=== PATIENT | female | born 1935 | race Caucasian/White ===

== ENCOUNTER 2020-11-20 12:03 | Inpatient (IN) | payer MEDICARE, OTHER, SELFPAY ==
[2020-11-20 12:05] VITALS: BP 153/76; PULSE 87; RESP 18; TEMP 36.7; O2SAT 96; BMI 25.8
--- NOTE | 2020-11-20 12:22 | EKG12_ITS ---
Test Reason : FALL Blood Pressure : / mmHG Vent. Rate : 084 BPM Atrial Rate : 084 BPM P-R Int : 204 ms QRS Dur : 082 ms QT Int : 370 ms P-R-T Axes : 075 069 076 degrees QTc Int : 437 ms Normal sinus rhythm Septal infarct , age undetermined Abnormal ECG Confirmed by DISHA HARDIN, ALBINO ([id number]), purchase request editor LY AGUAYO ([id number]) on 11/23/2020 11:27:45 A M Referred By: AMIRA Confirmed By:DONALD GAUTHIER MD
--- NOTE | 2020-11-20 12:22 | CT_ITS ---
STUDY: CT BRAIN WITHOUT CONTRAST REASON FOR EXAM: Female, 85 years old. Headache after trauma RADIATION DOSAGE (If Supplied By Facility): CTDIvol = ( 44.99 ) mGy, DLP = ( 796.11 ) mGycm TECHNIQUE: Transaxial CT imaging of the brain was performed without administration of intravenous contrast material. Individualized dose optimization techniques were used for this CT. COMPARISON: No relevant priors. FINDINGS: Normal soft tissue structures. Normal calvarium. Normal size ventricles and extra-axial spaces for the patient''s age. Normal white matter tracts of the cerebral hemispheres. Normal basal ganglia and thalami. Normal brainstem. Normal cerebellum. There is no intracranial hemorrhage. There are no findings of an acute ischemic infarction. Normal visualized paranasal sinuses. CT/Brain/Head without Contrast IMPRESSION: Chronic involutional changes of the brain, no acute hemorrhage. Electronically Signed: Wale Boss MD at 13:15 EDT , Service support ,
--- NOTE | 2020-11-20 12:25 | EDS_ITS ---
HPI History of Present Illness Chief Complaint: Fall Narrative Narrative: Patient presents after falling she indicates she was visiting a local establishment she indicated that her foot got caught on something and she fell injuring her left hip she hit her right face no LOC no neck pain chest pain abdominal pain she was not ill in any way, she indicates she has seen a certified hand therapist she has no known history of heart disease no history of NE, she has prior right knee replacement surgery she lives out of town she has no back pain PFSH PFSH Medical History (Updated 11/20/20 @ 14:[address] Roland Moss MD) Coronary artery disease Depression Fracture of pubic ramus GERD (gastroesophageal reflux disease) Hernia Hypertension Home Medications bimatoprost 1 drp EACH EYE DAILY@1800 11/20/20 [History Last Taken 11/19/20] calcium carbonate-vitamin D3 [Calcium + D] 1 tab PO DAILY 11/20/20 [History Last Taken 11/20/20] dorzolamide-timolol [Cosopt] 1 drp EACH EYE BID 11/20/20 [History Last Taken 11/20/20] ferrous sulfate 325 mg PO DAILY 11/20/20 [History Last Taken 11/20/20] hydrochlorothiazide 12.5 mg PO DAILY 11/20/20 [History Last Taken 11/20/20] hydroxychloroquine [Plaquenil] 200 mg PO DAILY 11/20/20 [History Last Taken 11/19/20] losartan 100 mg PO DAILY 11/20/20 [History Last Taken 11/20/20] meloxicam 7.5 mg PO BID 11/20/20 [History Last Taken 11/20/20] metoprolol succinate 75 mg PO DAILY 11/20/20 [History Last Taken 11/20/20] multivitamin 1 tab PO DAILY 11/20/20 [History Last Taken 11/20/20] oxycodone-acetaminophen 1 tab PO Q6H PRN PRN 3 Days #12 tablet 11/20/20 [Rx Last Taken Unknown] vitamin E 400 unit PO DAILY 11/20/20 [History Last Taken 11/20/20] Allergy/AdvReac Type Severity Reaction Status Date / Time No Known Allergies Allergy Verified 11/20/20 12:07 Family History (Updated 11/20/20 @ 12:51 by Eloisa Castillo) Other H/O: hysterectomy Social History Smoking Status: Never smoker ROS ROS ED ROS Narrative Right facial abrasion left hip pain Constitutional Constitutional ED: Reports subjective, sweats and other; Denies chills, fever(s) or weight loss Eyes Eyes: Denies blurry vision or change in vision ENT ENT ED: Denies ear pain Cardiovascular Cardiovascular: Denies chest pain or palpitations Respiratory/Chest Respiratory/Chest: Denies dyspnea Gastrointestinal Gastrointestinal: Denies abdominal pain, nausea or vomiting Genitourinary Genitourinary ED: Denies dysuria or hematuria Musculoskeletal Musculoskeletal: Reports arthralgias and myalgias Integumentary Reports rash; Denies abscess Neurologic Neurologic: Denies weakness Psychiatric Psychiatric: Denies anxiety or depression Endocrine Endocrinology: Denies polydipsia or polyuria Allergic/Immunologic Allergic/Immunologic ED: Denies urticaria EXAM Physical Exam Narrative Exam Narrative: She is awake and alert abrasion contusion to the right face and eye the eyes unremarkable HEENT is unremarkable neck is unremarkable nontender head neck chest abdomen unremarkable except for the left hip she has decreased range of motion and pain minimal shortening no obvious back pain NIH 0 she assures me she simply tripped and fell Const Vital Signs: 11/20/20 12:05 11/20/20 12:47 11/20/20 14:26 Temperature 98.0 F Temperature Source Temporal Pulse Rate 87 86 Respiratory Rate 18 Respiratory Effort Normal Blood Pressure 153/76 H 157/83 H Blood Pressure Mean 101 107 Pulse Ox 96 95 Oxygen Delivery Method Room Air Room Air Positive well developed General Appearance ED: well developed HEENT Reports normocephalic trauma Eyes EOMs intact bilaterally Neck supple Chest Wall inspection of chest normal Resp normal respiratory effort Cardio regular rate GI non-tender and non-distended Back/Spine Back/Spine Narrative: unremarkable Extremity Negative for normal to inspection General Extremety ED: Yes tenderness Neuro oriented x3 and CN's II-XII intact bilaterally Sensorium / Orientation: alert Psych mental status grossly normal Skin no rashes or lesions noted MDM MDM MDM Narrative Medical decision making narrative: Given her complaints ED evaluation with labs x-rays CT EKG shows sinus rhythm rate of 84 no acute injury nonspecific pattern Multiview left hip x-ray shows no hip fracture there appears to be a superior pubic ramus fracture radiology generally concur see those reports all the other screening labs are unremarkable including the head CT Discussed all this with patient her daughter discussed inpatient versus outpatient management the patient is not from this area she prefers outpatient management she has a walker at home she will be able to follow-up with her outpatient providers for all of her ongoing care needs and return for change in symptoms Home stable did not wish to be admitted Final impression fall left pubic ramus fracture, head injury Please note we tried to ambulate the patient and get her mobile to help move her to her family's car she could not tolerate the pain she could not ambulate she was placed back in bed given a fluid bolus given the above failure to be able to minimally move I explained to her she has failed the discharge plan and she now does agree to would be admitted, spoke with the hospitalist and they agree Disposition now is admit Lab Data Labs: Laboratory Results - last 24 hr 11/20/20 11/20/20 11/20/20 11:45 11:45 11:45 WBC 5.4 RBC 3.38 L Hgb 11.8 L Hct 34.3 L MCV 101.5 H MCH 34.9 H MCHC 34.4 RDW Std Deviation 45.9 H RDW Coeff of Lashawn 12.3 Plt Count 217 MPV 10.5 Immature Gran % (Auto) 0.600 Neut % (Auto) 73.7 H Lymph % (Auto) 15.7 L [place] % (Auto) 8.1 Eos % (Auto) 1.3 Baso % (Auto) 0.6 Absolute Neuts (auto) 4.0 Absolute Lymphs (auto) 0.85 Nucleated RBC % 0 PT Cancelled INR Cancelled Sodium 136 Potassium 3.9 Chloride 101 Carbon Dioxide 31.0 Anion Gap 4 L BUN 30 H Creatinine 0.94 Estim Creat Clear Calc 41.71 Est GFR (MDRD) Af Amer 73 Est GFR (MDRD) Non-Af 60 BUN/Creatinine Ratio 31.8 H Glucose 108 H Calcium 9.5 11/20/20 11/20/20 13:35 13:55 WBC RBC Hgb Hct MCV MCH MCHC RDW Std Deviation RDW Coeff of Lashawn Plt Count MPV Immature Gran % (Auto) Neut % (Auto) Lymph % (Auto) [place]ock[place] % (Auto) Eos % (Auto) Baso % (Auto) Absolute Neuts (auto) Absolute Lymphs (auto) Nucleated RBC % PT Cancelled 13.4 INR Cancelled 1.1 Sodium Potassium Chloride Carbon Dioxide Anion Gap BUN Creatinine Estim Creat Clear Calc Est GFR (MDRD) Af Amer Est GFR (MDRD) Non-Af BUN/Creatinine Ratio Glucose Calcium Radiography Diagnostic Testing: Radiology Impression Brain CT 11/20/20 12:22 IMPRESSION: Chronic involutional changes of the brain, no acute hemorrhage. Electronically Signed: Wale Boss MD at 13:15 EDT , Service support , Hip/Pelvis X-Ray 11/20/20 12:25 IMPRESSION: Acute minimally displaced left superior and inferior pubic rami fractures Age consistent hip and SI joint arthrosis. No other demonstrated fracture, please see discussion above Electronically Signed: Wale Boss MD at 13:24 EDT , Service support , Chest X-Ray 11/20/20 13:05 IMPRESSION: No acute pulmonary process Electronically Signed: Wale Boss MD at 13:24 EDT , Service support , Discharge Plan Triage Chief Complaint: Fall ED Provider: Roland Moss Dx/Rx/DC Orders Clinical Impression: Fracture of pubic ramus, Head injury Prescriptions: New oxycodone-acetaminophen [oxycodone-acetaminophen] 1 TABLET tablet 1 tab PO Q6H PRN PRN (Reason: Pain) 3 Days Qty: 12 RF: 0 No Action multivitamin Tablet 1 tab PO DAILY RF: 0 metoprolol succinate 50 mg Tablet Extended Release 24 Hr 75 mg PO DAILY RF: 0 bimatoprost 0.03 % Drops 1 drp EACH EYE DAILY@1800 RF: 0 calcium carbonate-vitamin D3 [Calcium + D] 600 mg(1,500mg) -200 unit Tablet 1 tab PO DAILY RF: 0 meloxicam 7.5 mg Tablet 7.5 mg PO BID RF: 0 ferrous sulfate 325 mg (65 mg iron) Tablet 325 mg PO DAILY RF: 0 dorzolamide-timolol [Cosopt] 22.3-6.8 mg/mL Drops 1 drp EACH EYE BID RF: 0 hydroxychloroquine [Plaquenil] 200 mg Tablet 200 mg PO DAILY RF: 0 losartan 100 mg Tablet 100 mg PO DAILY RF: 0 vitamin E 400 unit Capsule 400 unit PO DAILY RF: 0 hydrochlorothiazide 12.5 mg Tablet 12.5 mg PO DAILY RF: 0 Referrals: JONY FORTE [Other] Disposition Disposition: Home, self care
--- NOTE | 2020-11-20 12:25 | RAD_ITS ---
STUDY: X-RAY - PELVIS AND LEFT HIP REASON FOR EXAM: Female, 85 years old. Pain after trauma TECHNIQUE: 4 views of the pelvis and hip. COMPARISON: None. FINDINGS: There is a non-specific bowel gas pattern. Normal visualized soft tissue structures. There is diffuse demineralization of the osseous structures. There is narrowing with cortical sclerosis and osteophyte formation of the sacroiliac joint consistent with degenerative osteoarthritic changes. Acute minimally displaced left superior and inferior pubic rami fractures noted. No demonstrated right superior or inferior pubic rami fractures. Age consistent bilateral hip arthrosis without demonstrated femoral or acetabular fracture. However, hip fractures in patients of this age can be subtle, if there is strong clinical suspicion of another fracture, recommend further evaluation with cross-sectional imaging. RAD/HIP, UNI W/ Pelvis 2-3 Views IMPRESSION: Acute minimally displaced left superior and inferior pubic rami fractures Age consistent hip and SI joint arthrosis. No other demonstrated fracture, please see discussion above Electronically Signed: Wale Boss MD at 13:24 EDT , Service support ,
[2020-11-20] MEDS: morphine 8 MG/ML Syringe IV (12:41)
[2020-11-20] MEDS: Ondansetron 4 MG/2 ML Vial IV (12:42)
--- NOTE | 2020-11-20 13:05 | RAD_ITS ---
STUDY: X-RAY CHEST REASON FOR EXAM: Female, 85 years old. Chest pain after trauma TECHNIQUE: Single frontal view of the chest. COMPARISON: None. FINDINGS: The lungs are clear and expanded. There is no demonstrated pleural abnormality. Normal size heart. Normal mediastinum and leroy. Normal visualized pulmonary arteries. Normal visualized aortic arch and descending thoracic aorta. Normal visualized thoracic spine. Normal visualized ribs, clavicles, and shoulders. There is no demonstrated abnormality of the visualized soft tissue structures of the upper abdomen. RAD/Chest 1 View (Portable) IMPRESSION: No acute pulmonary process Electronically Signed: Wale Boss MD at 13:24 EDT , Service support ,
[2020-11-20 13:06] LABS: Absolute Lymphocyte Count 0.85 X10^3/uL (0.83-4.51); Basophil# 0.03 X10^3/uL; Basophil% 0.6 % (0-1); Eosinophil# 0.07 X10^3/uL; Eosinophils% 1.3 % (0-5); Hematocrit 34.3 % (37-47); Hemoglobin 11.8 g/dL (12.0-15.0); Lymphocyte # 0.85 X10^3/ul (0.83-4.51); Lymphocyte % 15.7 % (19-41); Mean Corp Hgb Conc 34.4 g/dL (32-36); Mean Corpuscular Hgb 34.9 pg (27.0-32.0); Mean Corpuscular Volume 101.5 fL (81-99); Mean Platelet Vol. 10.5 fl (6.2-12.0); Monocyte# 0.44 X10^3/uL; Monocyte% 8.1 % (0-10); NRBC Flagged by Analyzer 0 % (0-5); Neutrophil # 3.99 X10^3/uL (2.7-7.7); Neutrophil % 73.7 % (47-70); Platelet Count 217 K/mm3 (150-450); RBC Distribution Width CV 12.3 % (11.6-14.6); RBC Distribution Width SD 45.9 fl (35.1-43.9); Red Blood Count 3.38 M/mm3 (4.2-5.4); White Blood Count 5.4 K/mm3 (4.4-11.0)
[2020-11-20 13:16] LABS: Anion Gap 4 (5-15); BUN 30 mg/dL (7-18); BUN/Creat Ratio 31.8 RATIO (10-20); Calcium,Total 9.5 mg/dL (8.5-10.1); Chloride 101 mmol/L (98-107); Creatinine, Serum 0.94 mg/dL (0.55-1.02); EST Glomerular Filtration Rate 60 mL/min (>60); Est Glom Filt Rate - Afr Amer 73 mL/min (>60); Estimated Creatinine Clearance 41.71 ml/min; Glucose 108 mg/dL (74-106); Potassium 3.9 mmol/L (3.5-5.1); Sodium Level 136 mmol/L (136-145)
[2020-11-20 14:11] LABS: International Normalized Ratio 1.1; Prothrombin Time (Protime)PT. 13.4 SECONDS (11.7-14.9)
[2020-11-20 14:26] VITALS: BP 157/83; PULSE 86; O2SAT 95
--- NOTE | 2020-11-20 15:10 | ED.RN ---
PT UNABLE TO STAND . PT HAD A SYNCOPAL EPISODE WHILE TRYING TO STAND. PT ASSISTED BACK TO BED. PT HOOKED UP TO THE MONITOR AND DR KAUR INFORMED. HOSPITALIST PAGED
--- NOTE | 2020-11-20 15:20 | HP.PCM.HOS_ITS ---
HPI - General HPI Narrative HUSSAIN PADILLA, is a 85 F with a PMH as outlined who presents with a complaint of mechanical fall. She thinks her foot must have got caught on something, and she tripped and landed on her right side. SHe sustained a contusion to the right side of her face, and imaging done showed acute, minimally displaced left superior and inferior pubic rami fractures. Plan was for her to go home from ED, but she was unable to ambulate. Vitals showed blood pressure of 157/83 with pulse of 86. She was saturating 95% on room air. CBC showed hemoglobin of 11.8 with WBC of 5.5 platelets of 217, and chemistry showed sodium of 136 with potassium of 3.9 and creatinine of 0.94. She has been admitted to be managed for debility due to pubic rami fracture FOR[facility], [facility] Medical History (Updated 11/20/20 @ 14:[address] Roland Moss MD) Coronary artery disease Depression Fracture of pubic ramus GERD (gastroesophageal reflux disease) Hernia Hypertension Home Medications bimatoprost 1 drp EACH EYE DAILY@1800 11/20/20 [History Last Taken 11/19/20] calcium carbonate-vitamin D3 [Calcium + D] 1 tab PO DAILY 11/20/20 [History Last Taken 11/20/20] dorzolamide-timolol [Cosopt] 1 drp EACH EYE BID 11/20/20 [History Last Taken 11/20/20] ferrous sulfate 325 mg PO DAILY 11/20/20 [History Last Taken 11/20/20] hydrochlorothiazide 12.5 mg PO DAILY 11/20/20 [History Last Taken 11/20/20] hydroxychloroquine [Plaquenil] 200 mg PO DAILY 11/20/20 [History Last Taken 11/19/20] losartan 100 mg PO DAILY 11/20/20 [History Last Taken 11/20/20] meloxicam 7.5 mg PO BID 11/20/20 [History Last Taken 11/20/20] metoprolol succinate 75 mg PO DAILY 11/20/20 [History Last Taken 11/20/20] multivitamin 1 tab PO DAILY 11/20/20 [History Last Taken 11/20/20] oxycodone-acetaminophen 1 tab PO Q6H PRN PRN 3 Days #12 tablet 11/20/20 [Rx Last Taken Unknown] vitamin E 400 unit PO DAILY 11/20/20 [History Last Taken 11/20/20] Allergy/AdvReac Type Severity Reaction Status Date / Time No Known Allergies Allergy Verified 11/20/20 12:07 Family History (Updated 11/20/20 @ 12:51 by Eloisa Castillo) Other H/O: hysterectomy Social History Smoking Status: Never smoker ROS Constitutional Constitutional: Reports weakness; Denies anorexia, change in weight, chills, fatigue, fever(s) or malaise Eyes Eyes: Denies change in vision ENT HEENT: Denies dysphagia, headache(s) or nasal congestion Cardiovascular Cardiovascular: Denies chest pain, dyspnea on exertion, edema, lightheadedness, orthopnea or palpitations Respiratory/Chest Respiratory/Chest: Denies cough, dyspnea, productive cough, shortness of breath at rest or shortness of breath with exertion Gastrointestinal Gastrointestinal: Denies abdominal pain, coffee ground emesis, constipation, diarrhea or dyspepsia Genitourinary Genitourinary: Denies burning urination or dysuria Musculoskeletal Musculoskeletal: Reports joint pain; Denies arthralgias, joint swelling or neck pain Neurologic Neurologic: Reports abnormal gait; Denies focal weakness, numbness, paresthesias, seizure-like activity or seizures Psychiatric Psychiatric: Denies anxiety or depression Hematologic/Lymphatic Hematologic/Lymphatic: Denies anemia Vital Signs Vital Signs Vital Signs: 11/20/20 12:05 11/20/20 12:47 11/20/20 14:26 Temperature 98.0 F Temperature Source Temporal Pulse Rate 87 86 Respiratory Rate 18 Respiratory Effort Normal Blood Pressure 153/76 H 157/83 H Blood Pressure Mean 101 107 Pulse Ox 96 95 Oxygen Delivery Method Room Air Room Air Physical Exam Const alert, oriented x3 and no apparent distress General Appearance: cooperative HEENT normocephalic, head/scalp atraumatic and hearing grossly normal bilaterally Eyes PERRL Neck no lymphadenopathy, supple and no JVD Resp normal respiratory effort, no retractions, no use of accessory muscles and clear to auscultation bilaterally Cardio regular rate, regular rhythm, S1 normal heart sound, S2 normal heart sound and no murmurs GI normal to inspection, nondistended, normoactive bowel sounds, soft to palpation, non-tender and non-distended Extremity normal to inspection, full ROM and no clubbing, cyanosis or edema Peripheral Pulses: Yes pulses 2+ throughout Skin no rashes or lesions noted Neuro oriented x3 Sensorium / Orientation: awake and alert Psych affect normal Lab / Micro Data Result Diagrams: 11/20/20 11:45 11/20/20 11:45 Labs: Laboratory Results - last 24 hr 11/20/20 11/20/20 11/20/20 11:45 11:45 11:45 WBC 5.4 RBC 3.38 L Hgb 11.8 L Hct 34.3 L MCV 101.5 H MCH 34.9 H MCHC 34.4 RDW Std Deviation 45.9 H RDW Coeff of Lashawn 12.3 Plt Count 217 MPV 10.5 Immature Gran % (Auto) 0.600 Neut % (Auto) 73.7 H Lymph % (Auto) 15.7 L Wilkinson % (Auto) 8.1 Eos % (Auto) 1.3 Baso % (Auto) 0.6 Absolute Neuts (auto) 4.0 Absolute Lymphs (auto) 0.85 Nucleated RBC % 0 PT Cancelled INR Cancelled Sodium 136 Potassium 3.9 Chloride 101 Carbon Dioxide 31.0 Anion Gap 4 L BUN 30 H Creatinine 0.94 Estim Creat Clear Calc 41.71 Est GFR (MDRD) Af Amer 73 Est GFR (MDRD) Non-Af 60 BUN/Creatinine Ratio 31.8 H Glucose 108 H Calcium 9.5 11/20/20 11/20/20 13:35 13:55 WBC RBC Hgb Hct MCV MCH MCHC RDW Std Deviation RDW Coeff of Lashawn Plt Count MPV Immature Gran % (Auto) Neut % (Auto) Lymph % (Auto) Wilkinson % (Auto) Eos % (Auto) Baso % (Auto) Absolute Neuts (auto) Absolute Lymphs (auto) Nucleated RBC % PT Cancelled 13.4 INR Cancelled 1.1 Sodium Potassium Chloride Carbon Dioxide Anion Gap BUN Creatinine Estim Creat Clear Calc Est GFR (MDRD) Af Amer Est GFR (MDRD) Non-Af BUN/Creatinine Ratio Glucose Calcium Micro: Microbiology 11/20/20 13:27 SARS-CoV-2 Antigen (Rapid) - Final Mucosa - Nasopharyngeal Radiology Impression Brain CT 11/20/20 12:22 IMPRESSION: Chronic involutional changes of the brain, no acute hemorrhage. Electronically Signed: Wale Boss MD at 13:15 EDT , Service support , Hip/Pelvis X-Ray 11/20/20 12:25 IMPRESSION: Acute minimally displaced left superior and inferior pubic rami fractures Age consistent hip and SI joint arthrosis. No other demonstrated fracture, please see discussion above Electronically Signed: Wale Boss MD at 13:24 EDT , Service support , Chest X-Ray 11/20/20 13:05 IMPRESSION: No acute pulmonary process Electronically Signed: Wale Boss MD at 13:24 EDT , Service support , Assessment & Plan Assessment/Plan (1) Fracture of pubic ramus: (2) Head injury: PLAN: #Debility due to pubic rami fracture * admit to med surg * PT/OT consult * fall precautions * hydrate gently with IVF * PO tylenol, PO oxycodone and IV morphine prn for pain * #SUperior and inferior pubic rami fracture * as above. * conservative management * PT/OT consult * #Hypertension: on metoprolol and losartan #History of rheumatoid arthritis: on on hydroxychloroquine. DVT prophylaxis; lovenox Visit Charges OBSV E&M: [id number] Initial observation care L3
[2020-11-20 16:10] VITALS: BP 113/72; PULSE 93; RESP 17; TEMP 36.1
[2020-11-20 17:43] VITALS: BMI 25.0
[2020-11-20 17:47] VITALS: BP 147/75; PULSE 94; RESP 16; TEMP 37; O2SAT 96
[2020-11-20] MEDS: 0.9% Normal Saline 1,000 ML 125 ML IV (18:02)
[2020-11-20] MEDS: Latanoprost 0.005% 1 Bottle 1 DRP EACH EYE (18:21)
[2020-11-20 22:23] VITALS: BP 139/59; PULSE 90; RESP 18; TEMP 37; O2SAT 98
[2020-11-20] MEDS: Dorzolamide HCL/Timolol 10 ml Bottle 1 DRP EACH EYE (22:31)
[2020-11-20] MEDS: Meloxicam 7.5 MG Tablet PO (22:31)
[2020-11-20] MEDS: Acetaminophen 325 MG Tablet 650 MG PO (22:59)
[2020-11-21] VITALS (10 sets, daily range): BP systolic 98–148; BP diastolic 46–63; PULSE 68–98; RESP 18; TEMP 36.6–36.9; O2SAT 95–100
[2020-11-21] MEDS: 0.9% Normal Saline 1,000 ML 125 ML IV (01:44)
[2020-11-21 05:56] LABS: Absolute Lymphocyte Count 0.74 X10^3/uL (0.83-4.51); Absolute Neutrophil Count 4.2 X10^3/uL (2.0-7.7); Basophil# 0.01 X10^3/uL; Basophil% 0.2 % (0-1); Eosinophil# 0.01 X10^3/uL; Eosinophils% 0.2 % (0-5); Hematocrit 28.1 % (37-47); Hemoglobin 9.5 g/dL (12.0-15.0); Lymphocyte # 0.74 X10^3/ul (0.83-4.51); Lymphocyte % 13.7 % (19-41); Mean Corp Hgb Conc 33.8 g/dL (32-36); Mean Corpuscular Hgb 34.2 pg (27.0-32.0); Mean Corpuscular Volume 101.1 fL (81-99); Mean Platelet Vol. 10.2 fl (6.2-12.0); Monocyte# 0.48 X10^3/uL; Monocyte% 8.9 % (0-10); NRBC Flagged by Analyzer 0 % (0-5); Neutrophil # 4.15 X10^3/uL (2.7-7.7); Neutrophil % 76.8 % (47-70); Platelet Count 148 K/mm3 (150-450); RBC Distribution Width CV 12.5 % (11.6-14.6); RBC Distribution Width SD 46.5 fl (35.1-43.9); Red Blood Count 2.78 M/mm3 (4.2-5.4); White Blood Count 5.4 K/mm3 (4.4-11.0)
[2020-11-21 06:35] LABS: Anion Gap 5 (5-15); BUN 30 mg/dL (7-18); BUN/Creat Ratio 36.8 RATIO (10-20); Chloride 107 mmol/L (98-107); Creatinine, Serum 0.82 mg/dL (0.55-1.02); EST Glomerular Filtration Rate 71 mL/min (>60); Est Glom Filt Rate - Afr Amer 86 mL/min (>60); Estimated Creatinine Clearance 45.96 ml/min; Glucose 98 mg/dL (74-106); Potassium 3.4 mmol/L (3.5-5.1); Sodium Level 139 mmol/L (136-145)
--- NOTE | 2020-11-21 07:05 | PCM.PN.HOSP ---
Subjective Subjective Patient was admitted with pubic rami fracture on left side. She was fine in the morning but when physical therapist tried to walk her, she passed out. She remembers only that she walked few steps and then does not remember afterwards. As per nursing staff, she quickly came back few seconds and was normal. Her blood pressure dropped to 98/57 soon after passing out in semi-Martin position and then recovered soon 124/63. Patient asymptomatic with no chest pain or shortness of breath. She further said she felt terrible pain might have passed because of that. Objective Data Objective Data Vital Signs: Vital Signs Temp Pulse Resp BP Pulse Ox 98.4 F 75 18 114/46 L 99 11/21/20 05:43 11/21/20 05:43 11/21/20 05:43 11/21/20 05:43 11/21/20 05:43 Oxygen Delivery Method Room Air Weight: 150 lb Body Mass Index (BMI) 25.0 Intake & Output: Intake and Output for Last 24 Hours 11/19/20 11/20/20 11/21/20 23:59 23:59 23:59 Intake Total 800 / 800 1202.5 / 1202.5 Output Total 0 / 0 200 / 200 Balance 800 / 800 1002.5 / 1002.5 Lab / Micro Data Result Diagrams: 11/21/20 05:32 11/21/20 05:32 Labs: Laboratory Results - last 24 hr 11/20/20 11/20/20 11/20/20 11:45 11:45 11:45 WBC 5.4 RBC 3.38 L Hgb 11.8 L Hct 34.3 L MCV 101.5 H MCH 34.9 H MCHC 34.4 RDW Std Deviation 45.9 H RDW Coeff of Lashawn 12.3 Plt Count 217 MPV 10.5 Immature Gran % (Auto) 0.600 Neut % (Auto) 73.7 H Lymph % (Auto) 15.7 L Smyth % (Auto) 8.1 Eos % (Auto) 1.3 Baso % (Auto) 0.6 Absolute Neuts (auto) 4.0 Absolute Lymphs (auto) 0.85 Nucleated RBC % 0 PT Cancelled INR Cancelled Sodium 136 Potassium 3.9 Chloride 101 Carbon Dioxide 31.0 Anion Gap 4 L BUN 30 H Creatinine 0.94 Estim Creat Clear Calc 41.71 Est GFR (MDRD) Af Amer 73 Est GFR (MDRD) Non-Af 60 BUN/Creatinine Ratio 31.8 H Glucose 108 H Calcium 9.5 11/20/20 11/20/20 11/21/20 13:35 13:55 05:32 WBC 5.4 RBC 2.78 L Hgb 9.5 L Hct 28.1 L MCV 101.1 H MCH 34.2 H MCHC 33.8 RDW Std Deviation 46.5 H RDW Coeff of Lashawn 12.5 Plt Count 148 L MPV 10.2 Immature Gran % (Auto) 0.200 Neut % (Auto) 76.8 H Lymph % (Auto) 13.7 L Smyth % (Auto) 8.9 Eos % (Auto) 0.2 Baso % (Auto) 0.2 Absolute Neuts (auto) 4.2 Absolute Lymphs (auto) 0.74 L Nucleated RBC % 0 PT Cancelled 13.4 INR Cancelled 1.1 Sodium Potassium Chloride Carbon Dioxide Anion Gap BUN Creatinine Estim Creat Clear Calc Est GFR (MDRD) Af Amer Est GFR (MDRD) Non-Af BUN/Creatinine Ratio Glucose Calcium 11/21/20 05:32 WBC RBC Hgb Hct MCV MCH MCHC RDW Std Deviation RDW Coeff of Lashawn Plt Count MPV Immature Gran % (Auto) Neut % (Auto) Lymph % (Auto) Smyth % (Auto) Eos % (Auto) Baso % (Auto) Absolute Neuts (auto) Absolute Lymphs (auto) Nucleated RBC % PT INR Sodium 139 Potassium 3.4 L Chloride 107 Carbon Dioxide 27.0 Anion Gap 5 BUN 30 H Creatinine 0.82 Estim Creat Clear Calc 45.96 Est GFR (MDRD) Af Amer 86 Est GFR (MDRD) Non-Af 71 BUN/Creatinine Ratio 36.8 H Glucose 98 Calcium 8.0 L Micro: Microbiology 11/20/20 13:27 Mucosa - Nasopharyngeal SARS-CoV-2 Antigen (Rapid) - Final Radiography Diagnostic Testing: Radiology Impression Brain CT 11/20/20 12:22 IMPRESSION: Chronic involutional changes of the brain, no acute hemorrhage. Electronically Signed: Wale Boss MD at 13:15 EDT , Service support , Hip/Pelvis X-Ray 11/20/20 12:25 IMPRESSION: Acute minimally displaced left superior and inferior pubic rami fractures Age consistent hip and SI joint arthrosis. No other demonstrated fracture, please see discussion above Electronically Signed: Wale Boss MD at 13:24 EDT , Service support , Chest X-Ray 11/20/20 13:05 IMPRESSION: No acute pulmonary process Electronically Signed: Wale Boss MD at 13:24 EDT , Service support , Physical Exam Narrative Physical exam General: Alert, Oriented x3, Cooperative HEENT: Atraumatic, PERRLA, EOMI, Normocephalic Oral: No Gingival or Mucosal Lesions/ Ulcerations Neck: Supple, No JVD, Negative Carotid Bruits Lungs: Air entry diminished in bilateral lung bases. No crepitation/rhonchi Cardiovascular: Irregular rate and rhythm, normal S1, Normal S2, systolic murmur LLSB and second ICS Abdomen: Bowel Sounds Present, Soft, Non Tender, Non-Distended : No renal angle tenderness. No suprapubic tenderness. Extremities: No edema, Capillary Refill Less than 3 Seconds Skin: No rashes, No breakdown Musculoskeletal: Tenderness over left groin and greater trochanter. ROM restricted of left hip. Neurological: Cranial nerves II-XII grossly intact, Deep Tendon Reflexes 2+/4 and Symmetrical, Neuro grossly intact Psych/Mental Status: Normal Affect, Appropriate. Assessment & Plan Assessment/Plan (1) Fracture of pubic ramus: PLAN: This 85-year-old female was admitted after fall, accidental trip and fall resulting into pubic rami fracture and mild contusion in the head. 1. 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 Pain is controlled. [facility] Patient being evaluated by PT and OT. Patient felt drowsy nauseated with morphine therefore only on oxycodone 5 mg and 10 mg for moderate and severe pain respectively. 2. Syncope most probably vasovagal from pain with quick recovery: Patient recovered soon without any intervention or just laying down. 3. Blood pressure is controlled. Orthostatic blood pressure ordered. On metoprolol and atenolol. 4. Rheumatoid arthritis on hydroxychloroquine: DVT prophylaxis; lovenox Clinical Impression(s) from Imaging Studies Brain CT 11/20/20 12:22 IMPRESSION: Chronic involutional changes of the brain, no acute hemorrhage. Hip/Pelvis X-Ray 11/20/20 12:25 IMPRESSION: Acute minimally displaced left superior and inferior pubic rami fractures Age consistent hip and SI joint arthrosis. No other demonstrated fracture, please see discussion above Chest X-Ray 11/20/20 13:05 IMPRESSION: No acute pulmonary process Visit Charges Inpatient E&M: 29751 Subs Hosp L2
[2020-11-21] MEDS: Multivitamins,Therapeutic Tablet 1 TABLET PO (09:48)
[2020-11-21] MEDS: Metoprolol(XL)Succ 25 MG Tablet 75 MG PO (09:48)
[2020-11-21] MEDS: oxyCODONE 5 MG Tablet PO (09:48)
[2020-11-21] MEDS: Hydroxychloroquine 200 MG Tablet PO (09:49)
[2020-11-21] MEDS: Acetaminophen 325 MG Tablet 650 MG PO (09:49)
[2020-11-21] MEDS: Losartan Potassium 100 MG Tablet PO (09:49)
[2020-11-21] MEDS: Enoxaparin 40 MG/0.4 ML Syringe SC (09:49)
[2020-11-21] MEDS: Calcium Carb/Vitamin D 1 TABLET Tablet PO (09:49)
[2020-11-21] MEDS: hydroCHLOROthiazide 12.5mg 12.5 MG PO (09:49)
[2020-11-21] MEDS: Ferrous Sulfate 325 MG Tablet PO (09:49)
[2020-11-21] MEDS: Dorzolamide HCL/Timolol 10 ml Bottle 1 DRP EACH EYE ×2 (09:50→20:47)
[2020-11-21] MEDS: Vitamin E 400 UNITS Capsule PO (09:50)
[2020-11-21] MEDS: Meloxicam 7.5 MG Tablet PO ×2 (10:51→20:51)
[2020-11-21 11:37] LABS: Bedside Glucose 132 mg/dL (70-110)
--- NOTE | 2020-11-21 12:01 | CASEMGMT ---
Social Work Note SW reviewed PT/OT, pt was max assist of two today. SW in to speak with pt and complete assessment. SW introduced self and role at [facility]. Pt is alert and orientated and answers questions appropriately. Living Arrangements: Pt states she lives alone in a one story home with 2-3 steps enter. Pt states she has railings by the steps. ADLS: PT states she is very independent with ADLs and still drives. PCP: Manuel Colón Pharmacy: Pt states if it is an emergency she will go to [facility] but if not she will order from [facility]. DME: [facility], [employer] Supports: Pt states she has a daughter that lives in [place] which is about 8 miles away from her. HHC: Pt states had HHC in the past after knee surgery 10 years ago, unable to recall the name of agency. SNF: Pt states she has been to [facility] in the past. Pt states she was there after her knee surgery 10 years ago Mental Health Hx: Pt denied Substance Abuse Hx: Pt denied SW asked pt how she ended up in [place] if she is from [place]. Pt states she was coming down to go to [employer] and she went into the first store where she was walking into the store and up the walkway and ended up falling/tripping. SW spoke with pt about discharge plans. Pt states her daughter and her mentioned pt returning to [facility] for short term rehabiliatoin before returning home. SW asked pt if this worker could go ahead and get a referral sent to [facility] and pt states she would like to speak to her daughter again before making a decision. Pt asked if this worker could come back tomorrow. SW explained benefits of beginning the referral process today if SNF is decided on. Pt states she will call her daughter this afternoon then, states this worker can come back later today. SW to follow up with pt later today. Plan: KENNETH Umanzor POLE FRAME CONSTRUCTION WORKER, LIGHT RAIL TRANSIT OPERATOR
--- NOTE | 2020-11-21 12:57 | CHAPLAIN ---
Type of Pastoral Visit _x__ Initial Visit ___ Follow-up Visit ___ On-call Visit ___ General Patient Visit ___ Spiritual Assessment ___ Family Conference ___ Bereavement ___ Rapid Response ___ Code Blue ___ Other (describe below) Pastoral Care Referral From _x__ Patient ___ Family ___ Nurse ___ Physician ___ Ekg Monitor ___ Cash Register Operator ___ Other (describe below) Sacrament/Intervention _x__ Active listening ___ Anointing ___ Restoration ___ Bereavement ___ Communion ___ Ivet exploration ___ _x__ Life review _x__ Prayer ___ Reconciliation ___ Sacrament of Sick _x__ Supportive presence ___ Wedding ___ Other (describe below) Pastoral Comments
--- NOTE | 2020-11-21 14:34 | CASEMGMT ---
Addendum entered by Margie Umanzor 11/21/20 15:13: MARIANA received call from Natalie at [facility] stating they can accept pt. SW updated pt and Darlin on acceptance to [facility]. Pt and Darlin state understanding. Plan: [facility] when medically cleared Original Note: Social Work Note Pt's daughter Darlin is present at [facility]. SW in to speak with pt and Darlin. Pt and Darlin agree pt will need SNF and preference is [facility] in [place]. MARIANA explained referral process. Darlin also provided LW and HCPOA. MARIANA made copies and placed on pt's chart. Original provided back to Darlin. MARIANA placed a call to [facility] and spoke with Natalie in admissions. Natalie states they have beds available, requests referral be faxed to [phone]. MARIANA faxed referral. Plan: [facility] pending acceptance Margie Umanzor SAUSAGE STRINGER, C4 PLANNER
[2020-11-21] MEDS: Polyethylene Glycol 3350 17 GM PACKET PO (16:30)
[2020-11-21] MEDS: Latanoprost 0.005% 1 Bottle 1 DRP EACH EYE (17:30)
[2020-11-21] MEDS: traMADol 50 MG Tablet PO (20:45)
[2020-11-22 03:51] VITALS: BP 127/65; PULSE 73; RESP 16; TEMP 36.8; O2SAT 98
[2020-11-22 08:03] VITALS: O2SAT 96
[2020-11-22 08:57] VITALS: BP 148/74; PULSE 77; RESP 16; TEMP 36.9; O2SAT 97
--- NOTE | 2020-11-22 09:26 | PCM.TXEXTCAR ---
Diet 11/20/20 16:50 Diet: Cardiac - Heart Healthy Food consistency:: Regular Liquid Consistency:: Regular/Thin Is pt able to select menu?: Yes Routine Orders/Code Status Suppository Type: Dulcolax 10mg Suppository Frequency: Daily PRN Code Status: DNRCC-A Wound(s) right hand: Wound Type: Abrasion right uatsdin: Wound Type: Abrasion Therapies Weight Bearing: Weight bearing as tolerated Extremity Affected:: Left Lower Physical Therapy: Eval and Treat Occupational Therapy: Eval and Treat Speech Therapy: Eval and Treat Problem/Diagnosis (1) Fracture of pubic ramus: Status: Acute Allergies/Procedures Done in Hospital Allergies morphine Adverse Reaction (Verified 11/21/20 07:59) Other states has hallucinations Type of Care/Length of Stay Estimated LOS: Convalescent Care Less Than 30 days Type of Care Needed: Skilled Rehab Potential: Good Prognosis: Good Additional Orders/Day of Discharge Day of Discharge: 11/22/20 Discharge Plan Admission Admit Date/Time: 11/21/20 16:21 Primary Reason for Your Visit: Left superior and inferior pubic rami fracture Attending Provider: Noel Casanova Discharge Orders/Prescriptions Prescriptions: New acetaminophen [Tylenol] 325 mg Tablet 650 mg PO Q6H PRN PRN (Reason: Pain Score 1-10/Temp > 100.7 F) Qty: 0 RF: 0 polyethylene glycol 3350 17 gram Powder In Packet 17 g PO DAILY Qty: 0 RF: 0 sennosides-docusate sodium [Stool Softener-Stimulant Laxat] 8.6-50 mg Tablet 2 tab PO BID PRN (Reason: CONSTIPATION) Qty: 0 RF: 0 tramadol 50 mg Tablet 50 mg PO Q6H PRN PRN (Reason: Pain Score 4-10) 3 Days Qty: 10 RF: 0 bisacodyl 10 mg Suppository 10 mg WA DAILY PRN PRN (Reason: Constipation) Qty: 0 RF: 0 metoprolol succinate 25 mg Tablet Extended Release 24 Hr 75 mg PO DAILY Qty: 0 RF: 0 enoxaparin 40 mg/0.4 mL Syringe 40 mg subcut DAILY Qty: 0 RF: 0 Continued multivitamin Tablet 1 tab PO DAILY RF: 0 bimatoprost 0.03 % Drops 1 drp EACH EYE DAILY@1800 RF: 0 calcium carbonate-vitamin D3 600 mg(1,500mg) -200 unit Tablet 1 tab PO DAILY RF: 0 meloxicam 7.5 mg Tablet 7.5 mg PO BID RF: 0 ferrous sulfate 325 mg (65 mg iron) Tablet 325 mg PO DAILY RF: 0 dorzolamide-timolol [Cosopt] 22.3-6.8 mg/mL Drops 1 drp EACH EYE BID RF: 0 hydroxychloroquine [Plaquenil] 200 mg Tablet 200 mg PO DAILY RF: 0 losartan 100 mg Tablet 100 mg PO DAILY RF: 0 vitamin E 400 unit Capsule 400 unit PO DAILY RF: 0 hydrochlorothiazide 12.5 mg Tablet 12.5 mg PO DAILY RF: 0 Discontinued metoprolol succinate 50 mg Tablet Extended Release 24 Hr 75 mg PO DAILY RF: 0 Referrals / Follow Up: JONY FORTE [Other] JONY FORTE [Other] Disposition Disposition (needs filled in before D/C Order can be placed): [facility]
--- NOTE | 2020-11-22 09:27 | DS.PCM_ITS ---
Providers Date of Admission: 11/21/20 Primary Care Physician: JONY FORTE Reason For Visit: PUBIC RAMI FRACTURE DUE TO MECHANICAL FALL Diagnosis Discharge Diagnosis (1) Fracture of pubic ramus: Status: Acute Code(s): S32.599A - Other specified fracture of unspecified pubis, initial encounter for closed fracture Medications at Discharge Home Medications bimatoprost 1 drp EACH EYE DAILY@1800 11/20/20 calcium carbonate-vitamin D3 1 tab PO DAILY 11/20/20 dorzolamide-timolol [Cosopt] 1 drp EACH EYE BID 11/20/20 ferrous sulfate 325 mg PO DAILY 11/20/20 hydrochlorothiazide 12.5 mg PO DAILY 11/20/20 hydroxychloroquine [Plaquenil] 200 mg PO DAILY 11/20/20 losartan 100 mg PO DAILY 11/20/20 meloxicam 7.5 mg PO BID 11/20/20 multivitamin 1 tab PO DAILY 11/20/20 vitamin E 400 unit PO DAILY 11/20/20 acetaminophen [Tylenol] 650 mg PO Q6H PRN PRN #0 tab 11/22/20 bisacodyl 10 mg CO DAILY PRN PRN #0 ea 11/22/20 enoxaparin 40 mg SUBCUT DAILY #0 ml 11/22/20 metoprolol succinate 75 mg PO DAILY #0 tab 11/22/20 polyethylene glycol 3350 17 g PO DAILY #0 ea 11/22/20 sennosides-docusate sodium [Stool Softener-Stimulant Laxat] 2 tab PO BID PRN #0 tab 11/22/20 tramadol 50 mg PO Q6H PRN PRN 3 Days #10 tab 11/22/20 Hospital Course Summary of Care Provided Hospital Course: ?This 85-year-old female was admitted after fall, accidental trip and fall resulting into pubic rami fracture and mild contusion in the head. 1. 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 Pain is controlled.? Patient admitted to MedSurg floor.? Patient being evaluated by PT and OT.? Patient felt drowsy nauseated with morphine therefore only on oxycodone 5 mg and 10 mg for moderate and severe pain respectively. Later on it was changed to tramadol. Follow-up orthopedic surgeon Dr. Borruso in 4 weeks. 2.? Syncope most probably vasovagal from pain with quick recovery: Patient recovered soon without any intervention or just laying down. Orthostatic blood pressure did not show significant change in blood pressure or heart rate. 3.? Blood pressure is controlled.? Orthostatic blood pressure ordered.? On metoprolol and atenolol. 4.? Rheumatoid arthritis on hydroxychloroquine: DVT prophylaxis; lovenox 40 mg subcu daily. Discontinue if platelet count drops less than 50,000 or hemoglobin less than 8 g%. Living will/advanced directive/end of life care: Patient does not have living will or advanced directive. After discussion of benefits/risks procedures involved with full code, DNR CC arrest and DNR CC, the patient opted for DNR-CC Arrest with no intubation Patient does not want artificial life support including intubation, tube feed, ventilator and/chest compression, central venous catheter, vasopressor and DC shock if needed Total time spent in [id number] encounter in discussion of advanced directive 16 minutes. Discharge medication reconciliation done. Discharge follow-up instructions completed. Discharge process discussed with the patient and all questions were answered to patient's satisfaction. Total time spent, exact 35 minutes on discharge meds reconciliation, examination, coordination of care with nurses and ancillary staff, review of imaging and blood test and discussion with the patient on follow-up instr uctions Physical Exam Narrative No dizziness or lightheadedness. Patient had physical therapy in the morning and she tolerated it well. Feels more pain on the left groin during and after walking. Physical exam General: Alert, Oriented x3, Cooperative HEENT: Atraumatic, PERRLA, EOMI, Normocephalic Oral: No Gingival or Mucosal Lesions/ Ulcerations Neck: Supple, No JVD, Negative Carotid Bruits Lungs: Air entry diminished in bilateral lung bases. No crepitation/rhonchi Cardiovascular: Irregular rate and rhythm, normal S1, Normal S2, systolic murmur LLSB and second ICS Abdomen: Bowel Sounds Present, Soft, Non Tender, Non-Distended : No renal angle tenderness. No suprapubic tenderness. Extremities: No edema, Capillary Refill Less than 3 Seconds Skin: No rashes, No breakdown Musculoskeletal: Mild tenderness over left groin and greater trochanter. ROM restricted of left hip. Neurological: Cranial nerves II-XII grossly intact, Deep Tendon Reflexes 2+/4 and Symmetrical, Neuro grossly intact Psych/Mental Status: Normal Affect, Appropriate. ABG / Lab / Microbiology Data Result Diagrams: 11/21/20 05:32 11/21/20 05:32 Laboratory: Laboratory Results - last 24 hr 11/21/20 10:21 POC Glucose 132 H Microbiology: Microbiology 11/20/20 13:27 Mucosa - Nasopharyngeal SARS-CoV-2 Antigen (Rapid) - Final Meaningful Use Info Meaningful Use Diagnoses (Choose all that apply): None applicable Discharge Plan Admission Admit Date/Time: 11/21/20 16:21 Primary Reason for Your Visit: Left superior and inferior pubic rami fracture Attending Provider: Noel Casanova Discharge Orders/Prescriptions Prescriptions: New acetaminophen [Tylenol] 325 mg Tablet 650 mg PO Q6H PRN PRN (Reason: Pain Score 1-10/Temp > 100.7 F) Qty: 0 RF: 0 polyethylene glycol 3350 17 gram Powder In Packet 17 g PO DAILY Qty: 0 RF: 0 sennosides-docusate sodium [Stool Softener-Stimulant Laxat] 8.6-50 mg Tablet 2 tab PO BID PRN (Reason: CONSTIPATION) Qty: 0 RF: 0 tramadol 50 mg Tablet 50 mg PO Q6H PRN PRN (Reason: Pain Score 4-10) 3 Days Qty: 10 RF: 0 bisacodyl 10 mg Suppository 10 mg CO DAILY PRN PRN (Reason: Constipation) Qty: 0 RF: 0 metoprolol succinate 25 mg Tablet Extended Release 24 Hr 75 mg PO DAILY Qty: 0 RF: 0 enoxaparin 40 mg/0.4 mL Syringe 40 mg subcut DAILY Qty: 0 RF: 0 Continued multivitamin Tablet 1 tab PO DAILY RF: 0 bimatoprost 0.03 % Drops 1 drp EACH EYE DAILY@1800 RF: 0 calcium carbonate-vitamin D3 600 mg(1,500mg) -200 unit Tablet 1 tab PO DAILY RF: 0 meloxicam 7.5 mg Tablet 7.5 mg PO BID RF: 0 ferrous sulfate 325 mg (65 mg iron) Tablet 325 mg PO DAILY RF: 0 dorzolamide-timolol [Cosopt] 22.3-6.8 mg/mL Drops 1 drp EACH EYE BID RF: 0 hydroxychloroquine [Plaquenil] 200 mg Tablet 200 mg PO DAILY RF: 0 losartan 100 mg Tablet 100 mg PO DAILY RF: 0 vitamin E 400 unit Capsule 400 unit PO DAILY RF: 0 hydrochlorothiazide 12.5 mg Tablet 12.5 mg PO DAILY RF: 0 Discontinued metoprolol succinate 50 mg Tablet Extended Release 24 Hr 75 mg PO DAILY RF: 0 Referrals / Follow Up: JONY FORTE [Other] - Within 2 Weeks (For history of RA and PCP.) JONY FORTE [Other] Gonzales Villagran DO [STAFF PHYSICIAN] - Within 1 Month (For left pubic rami fracture) Disposition Disposition (needs filled in before D/C Order can be placed): [facility] Visit Charges Inpatient E&M: 15586 Disch Hosp
[2020-11-22 09:33] VITALS: BP 148/74; PULSE 77
[2020-11-22] MEDS: Metoprolol(XL)Succ 25 MG Tablet 75 MG PO (09:33)
[2020-11-22] MEDS: Senna/Docusate Sodium 1 Tablet 2 TABLET PO (09:33)
[2020-11-22] MEDS: Polyethylene Glycol 3350 17 GM PACKET PO (09:34)
[2020-11-22] MEDS: Dorzolamide HCL/Timolol 10 ml Bottle 1 DRP EACH EYE (09:34)
[2020-11-22] MEDS: hydroCHLOROthiazide 12.5mg 12.5 MG PO (09:34)
[2020-11-22] MEDS: Enoxaparin 40 MG/0.4 ML Syringe SC (09:34)
--- NOTE | 2020-11-22 10:02 | PHA.DC.MR ---
Pharmacy Service has performed discharge medication reconciliation for this patient upon transfer to [facility]. Home Medications bimatoprost 1 drp EACH EYE DAILY@1800 11/20/20 calcium carbonate-vitamin D3 [Calcium + D] 1 tab PO DAILY 11/20/20 dorzolamide-timolol [Cosopt] 1 drp EACH EYE BID 11/20/20 ferrous sulfate 325 mg PO DAILY 11/20/20 hydrochlorothiazide 12.5 mg PO DAILY 11/20/20 hydroxychloroquine [Plaquenil] 200 mg PO DAILY 11/20/20 losartan 100 mg PO DAILY 11/20/20 meloxicam 7.5 mg PO BID 11/20/20 metoprolol succinate 75 mg PO DAILY 11/20/20 multivitamin 1 tab PO DAILY 11/20/20 oxycodone-acetaminophen 1 tab PO Q6H PRN PRN 3 Days #12 tablet 11/20/20 vitamin E 400 unit PO DAILY 11/20/20 The patient's discharge medication list was reviewed for discrepancies and discrepancies were resolved.
[2020-11-22] MEDS: Vitamin E 400 UNITS Capsule PO (11:02)
[2020-11-22] MEDS: Hydroxychloroquine 200 MG Tablet PO (11:03)
[2020-11-22] MEDS: Meloxicam 7.5 MG Tablet PO (11:03)
[2020-11-22] MEDS: Losartan Potassium 100 MG Tablet PO (11:03)
[2020-11-22] MEDS: Ferrous Sulfate 325 MG Tablet PO (11:04)
[2020-11-22] MEDS: Calcium Carb/Vitamin D 1 TABLET Tablet PO (11:04)
[2020-11-22] MEDS: Multivitamins,Therapeutic Tablet 1 TABLET PO (11:04)
--- NOTE | 2020-11-22 11:24 | CASEMGMT ---
Social Work Note Pt is medically ready for discharge today. MARIANA placed a call to Natalie at [facility] and updated her. Natalie states pt's COVID test from the 18th is still good for today. MARIANA then received call from pt's daughter Darlin stating pt mentioned to her that she needed to stay another night for Medicare. MARIANA explained Medicare Rules for SNF and that at this time, they are not requiring three midnight stay in the hospital. Pt is able to discharge to SNF today and it will be covered under Medicare. MARIANA updated Darlin that medically pt is ready for discharge today. Darlin states she will just meet pt once pt arrives at [facility]. SW informed Darlin that this worker will call her when transportation is arranged. Darlin states understanding. SW in to speak with pt. MARIANA updated pt that she will be discharged to [facility] today. Pt asked about three midnight stay at hospital. SW informed pt that that is not a requirement at this time, pt can discharge to SNF today. Pt states understanding. Plan: [facility] today Margie Umanzor ELECTROCARDIOGRAPH REPAIRER, MEDICAL AIDE
[2020-11-22 14:04] VITALS: BP 118/54; PULSE 69; RESP 16; TEMP 36.8; O2SAT 99
--- NOTE | 2020-11-22 14:11 | CASEMGMT ---
Social Work Note MARIANA faxed completed discharge paperwork to [facility] including transfer to extended care facility, signed medication list, any scripts, COVID test, COVID tool and HENS. Original in SNF folder and copy on pt's chart. MARIANA completed convalescent 7000 in HENS. Original in SNF folder and copy on pt's chart. MARIANA spoke with RN, pt can transport via cot. MARIANA accessed trip assist and arranged transportation via cot for 3:00pm. Transportation form completed and placed on SNF folder and copy on pt's chart. MARIANA placed a call to Natalie in admissions at [facility] and updated her on transportation time. MARIANA placed a call to pt's daughter Darlin and updated her on transportation time. MARIANA updated both pt and RN on transportation time. Plan: [facility] skilled today with physician's transporting pt via cot at 3:00pm Margie PALAFOX, [employer]
[2020-11-22] MEDS: traMADol 50 MG Tablet PO (14:16)
--- NOTE | 2020-11-22 15:17 | NURSING ---
Report called to Roseanna at [phone] [facility].
[2020-11-22 15:59] VITALS: BP 118/54; PULSE 96; RESP 18; TEMP 36.8; O2SAT 99
== END 2020-11-22 16:00 | DRG 536 ==
LOC: ED 15:50 → MS3 16:06
PROVIDERS: Admitting Provider Student in an Organized Health Care Education/Training Program; Emergency Provider Emergency Medicine; Visit Provider Internal Medicine
DX: S32.592A Other specified fracture of left pubis, initial encounter for closed fracture (principal); S00.81XA Abrasion of other part of head, initial encounter; F32.9 Major depressive disorder, single episode, unspecified; K21.9 Gastro-esophageal reflux disease without esophagitis; I10 Essential (primary) hypertension; M06.9 Rheumatoid arthritis, unspecified; M19.90 Unspecified osteoarthritis, unspecified site; W01.0XXA Fall on same level from slipping, tripping and stumbling without subsequent striking against object, initial encounter; Z66 Do not resuscitate; I25.10 Atherosclerotic heart disease of native coronary artery without angina pectoris; Z90.710 Acquired absence of both cervix and uterus
CPT/HCPCS: 36415; 70450; 71045; 73502; 80048; 82962; 85025; 85610; 87426; 93005; 97110; 97116; 97162; 97166; 97530; 97535; 99285; J7030; J7040; A4216; J2405